=== PATIENT | male | born 1970 | race Caucasian/White ===

== ENCOUNTER 2019-02-06 10:24 | Outpatient (CLI) | payer OTHER ==
--- NOTE | 2019-02-06 17:04 | CT ---
CT LEFT WRIST WITHOUT CONTRAST: Date: 02/06/19 HISTORY: Fracture. COMPARISON: None. FINDINGS: Compression screw through scaphoid is in good position. There is adequate healing of the scaphoid. No fracture line is appreciated. Retrograde headless compression screw through the ulnar styloid is present in good position. There is also retrograde nail through the distal radius in good position. There are a total of four surgical clips within the dorsal soft tissues of the wrist. There is modera te synovitis of the radiocarpal joint. There is mild osseous demineralization. No hardware complication is appreciated. No scapholunate or lunotriquetral widening. The hook of the hamate and tubercle of trapezium are normal. Moderate degenerative disease of the tracie mb carpometacarpal joint. IMPRESSION: Satisfactory appearance of the surgical hardware without hardware complication. Expected adequate hea ling. POS: [facility]
== END 2019-02-06 10:25 | disposition home or self-care (01) ==
LOC: SCSCT 10:24
PROVIDERS: ATTEND Specialist
DX: S62.102D Fracture of unspecified carpal bone, left wrist, subsequent encounter for fracture with routine healing (principal); Z98.890 Other specified postprocedural states

== ENCOUNTER 2019-05-04 10:44 | Day surgery (SDC) | payer OTHER ==
[2019-05-03 13:08] VITALS: BMI 33.2
[2019-05-04] MEDS ORDERED: CEFAZOLIN 1 GM VIAL ONE (11:50)
[2019-05-04] MEDS ORDERED: Sodium Chloride 0.9% 100 ML ONE (11:51)
[2019-05-04] MEDS ORDERED: Propofol 500 MG/50 ML VIAL ONE ×2 (12:22→13:40)
[2019-05-04] MEDS ORDERED: Midazolam HCl 2 mg/2 ml Vial ONE (12:22)
[2019-05-04] MEDS ORDERED: Fentanyl 100 MCG/2 ML VIAL ONE (12:22)
[2019-05-04] MEDS ORDERED: Bupivacaine HCl 0.5%/Epinephrine 1:200,000/PF 30 ml Vial ONE (12:31)
[2019-05-04] MEDS ORDERED: Levofloxacin 500 mg/D5W 100 ml Premix Bag ONE (13:07)
[2019-05-04] MEDS ORDERED: HYDROcodone/Acetaminophen 5/325 mg Tablet ONE (15:43)
--- NOTE | 2019-05-04 17:09 | RAD ---
1 view cervical spine. HISTORY: Dorsal column stimulator placement. There is a dorsal column stimulator distal tip overlying the C2 level. The more proximal portion is o azra the length of the cervical spine. IMPRESSION: Intraoperative radiograph dorsal column stimulator.
--- NOTE | 2019-05-05 08:30 | OP ---
DATE OF PROCEDURE: 05/04/2019 PREOPERATIVE DIAGNOSES: 1. Chronic pain syndrome. 2. Complex regional pain syndrome, type 1 of the left upper extremity. POSTOPERATIVE DIAGNOSES: 1. Chronic pain syndrome. 2. Complex regional pain syndrome, type 1 of the left upper extremity. PROCEDURE: 1. Spinal cord stimulator generator implant. 2. Spinal cord stimulator lead implant x2. 3. Programming. 4. Fluoroscopy. ESTIMATED BLOOD LOSS: 5 mL. SUMMARY OF PROCEDURE: The patient was taken to the procedure room, placed prone on the procedure room table. A time-out was performed. We prepped the back with DuraPrep and sterile drapes were applied. Using fluoroscopy, we located the interspace of T5-6. We anesthetized the skin in a vertical fashion and made an incision using a 10 blade scalpel and blunt dissected this down to the fascia. We then inserted a 14-gauge Touhy needle paramedian into and engaged in the interspinous ligament. We used loss resistance to air to achieve access to the epidural space. Aspiration was negative for heme or CSF. We then threaded an 8 contact [place] lead up the midline dorsal epidural space to the top of C3, just left of midline. We then placed a contralateral lead in the exact same fashion and advanced this using continuous fluoroscopy just left of the left midline lead to the top of C2. Stimulation was performed with the patient awake and the patient noted paresthesia in all pain areas. We then took the needles out, taking care not to remove the leads or move the leads. We placed 2 anchors over them and clicked them down to affix them to the leads. We then sutured this down to fascia using 2-0 silk suture x2 for each anchor. We then anesthetized the skin in the right left upper buttock. We made a horizontal incision and blunt dissected this down to Nikki's fascia. We dissected inferior and superior to make a pocket. We inserted a tunneling device and made a tunnel between the two pockets. The leads were inserted through the tunnel and brought to the battery pocket. These were connected to the battery and torqued down to fixate them to the battery. Impedances were checked which were good. The battery was placed inside the pocket. Both incisions were approximated using 2-0 Vicryl suture in simple interrupted fashion. We then used kait for the skin and a layer of Dermabond and occlusive dressing. Sterile 4x4s were placed after Dermabond dried. The patient was taken to the recovery room under stable condition. Job ID: [id number]
== END 2019-05-04 17:00 | disposition home or self-care (01) ==
LOC: SDC 10:44
PROVIDERS: ATTEND Specialist
PROC: 00HU3MZ Insertion of Neurostimulator Lead into Spinal Canal, Percutaneous Approach (ICD-10-PCS; principal; 2019-05-04)
PROC: 0JH70BZ Insertion of Single Array Stimulator Generator into Back Subcutaneous Tissue and Fascia, Open Approach (ICD-10-PCS; principal; 2019-05-04)
DX: G90.512 Complex regional pain syndrome I of left upper limb (principal); G89.4 Chronic pain syndrome; Z88.0 Allergy status to penicillin
CPT/HCPCS: 72020; 76000; C1767; J0670; J0690; J1956; J2250; J2704; J3010; J3490